=== PATIENT | male | born 1935 | race Caucasian/White ===

== ENCOUNTER 2023-05-19 19:31 | Emergency (ER) | payer MEDICARE, SELFPAY ==
--- NOTE | ~2023-05-19 | XR_ITS ---
EXAMINATION: XR chest 2V 05/19/2023 19:54 INDICATION: Shortness of breath and cough PROCEDURE: 2 view chest COMPARISON: No prior studies for comparison. FINDINGS: The lungs are clear. The cardiomediastinal silhouette is within normal limits. There are no pleural effusions. There is no pneumothorax suspected. IMPRESSION: 1: NO ACUTE CARDIOPULMONARY DISEASE. Reviewed, dictated and finalized at location A.
--- NOTE | 2023-05-19 19:34 | ED.SOB ---
HPI - SOB/Dyspnea General Chief Complaint: Upper Respiratory Infection Stated Complaint: Chest Congestion,Cough,Shortness of Breath Time Seen by Provider: 05/19/23 19:34 Source: patient Mode of arrival: ambulatory Limitations: no limitations History of Present Illness HPI Narrative: Edouard is an 88-year-old male patient presenting to the clinic today with complaints of chest congestion, cough, and shortness of breath x4 days. He reports he reports he did have fever today 100.4 and was given Tylenol at 7:00 this evening. History of hyperlipidemia, high blood pressure, Parkinson's, and prediabetes Related Data Allergies Allergy/AdvReac Type Severity Reaction Status Date / Time Penicillins Allergy Unknown Verified 05/19/23 19:53 Review of Systems Review of Systems: Pertinent positives per HPI. Patient denies any rash, headache, visual changes, dizziness, chest pain, palpitations, nausea, vomiting, diarrhea, constipation, abdominal pain, or any urinary issues. PMFSH Comments At the time of my signature, I reviewed and agree with the nursing past medical, surgical, social, and family history. There is no relevant family history pertinent to the patient complaint. Exam Narrative: General: Well-developed, well nourished, in no apparent distress Head: Normocephalic, atraumatic Eyes: Pupils equally round and reactive to light bilaterally, EOM intact, sclera and conjunctive clear, no discharge, lids normal Ears: TMs intact and congested, ear canals clear, no drainage, grossly hearing normal. Wears hearing aids Nose: Nares patent, clear nasal discharge, no inflammation, no sinus tenderness. Mouth: Oral pharynx without lesions or masses, good dentition, MMM. Neck: Supple, trachea midline, no enlargement of anterior or posterior cervical nodes, no thyroid masses or goiter palpable. Cardio: Regular rate and rhythm, s1 and s2 normal, no murmur appreciated. Resp: Lung sounds tight with inspiratory and expiratory wheezing, no rhonchi, rales, or rubs Course Course Emergency Course: Portions of this record may have been created with voice recognition software. Level of Care: Express Care Visit Vital Signs Vital signs: Vital signs reviewed MDM - SOB/Dyspnea MDM Narrative Medical decision making narrative: At the time of visit patient is resting comfortably on the exam table. Patient appears to be nontoxic. Diagnostics: Chest x-ray was performed and is negative for any sign of pneumonia Medications given: Nakia LAM treatment -lung sounds improved-patient is moving more air and SpO2 is 94% at the time of discharge Plan: I suspect patient has bronchitis. Patient is bringing up yellow phlegm and is increase in age-no formal history of COPD but does take Spiriva and albuterol inhaler when needed. I feel that is appropriate to give patient antibiotics. Will send in prescription for azithromycin, prednisone, Tessalon Perles, and new albuterol inhaler prescription. Supportive measures were discussed with the patient and they voiced understanding discharge instructions and agrees to treatment plan. Return precautions reviewed Differential Diagnosis Differential diagnosis: Likely acute exacerbation of chronic obstructive airways disease, congestive heart failure, community acquired pneumonia, asthma with exacerbation, pulmonary embolism and other (COVID, influenza) Discharge Plan Discharge Clinical Impression: Bronchitis Patient Disposition: Home, Self-Care Condition: Stable Instructions: Antibiotic Form, Acute Bronchitis (ED) Additional Instructions: COVID and influenza testing was negative Take prescription medications only as prescribed-prednisone, azithromycin, albuterol inhaler, and Tessalon Perles May take Mucinex during the daytime intake Tessalon Perles at night to help him sleep Increase fluids and stay well hydrated Tylenol/motrin for pain/fever Flonase and OTC antihistamines as directed
[2023-05-19 19:42] VITALS: BP 150/65; PULSE 90; RESP 18; TEMP 37.1; O2SAT 96
[2023-05-19] MEDS: IPRATROPIUM BR 0.02% INH SOLN 0.5 MG/2.5 ML VIAL INHALATION (20:01)
[2023-05-19] MEDS: ALBUTEROL SULFATE NEB 2.5 MG/3 ML INH INHALATION (20:01)
== END 2023-05-19 20:17 | disposition home or self-care (01) ==
PROVIDERS: Emergency Provider Nurse Practitioner Family; PCP Pediatrics
DX: J40 Bronchitis, not specified as acute or chronic (principal); Z20.822 Contact with and (suspected) exposure to COVID-19; G20.A1 Parkinson's disease without dyskinesia, without mention of fluctuations; E78.00 Pure hypercholesterolemia, unspecified; I10 Essential (primary) hypertension; J44.9 Chronic obstructive pulmonary disease, unspecified
CPT/HCPCS: 71046; 87426; 87804; 94640; 99213; G0463

== ENCOUNTER 2024-03-19 14:05 | Emergency (ER) | payer MEDICARE, SELFPAY ==
[2024-03-19 14:37] VITALS: BP 159/78; PULSE 80; RESP 18; TEMP 36.7; O2SAT 95
--- OUTSIDE RECORDS SUMMARY | 2024-03-19 14:41 | XMS_ITS | Patient Health Record ---
Author Organization [facility] Address [address] [place], [place] [id number] Care Team Providers Care Car Pre Cooler Name Role Phone RALPH DELGADO Unavailable [phone] Fuentes Colindres Unavailable Unavailable Allergies No Known Allergies Reason For Referral No Information Immunizations Vaccine Route Administration Date Status Comme nts Influenza, high dose seasonal Unknown 11/19/2022 Admini stered Vital Signs Height-cm 185.42 cm 10/04/2023 Weight-kg 81.65 kg 10/04/2023 Height 73.00 in 10/04/2023 Weight 180 lbs 10/04/2023 BMI 23.75 kg/m2 10/04/2023 Encounters Encounter Location Date Provider Diagnosis [facility] [address] [place], [place] [id number] 03/22/2023 RALPH SNOOK Tinea unguium B35.1 ; Pain in right toe(s) M79.674 ; Pain in left toe(s) M79.675 and 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, bilateral legs I70.213 [facility] [address] [place], [place] [id number] 06/14/2023 RALPH SNOOK Tinea unguium B35.1 ; Pain in right toe(s) M79.674 ; Pain in left toe(s) M79.675 and 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, bilateral legs I70.213 [facility] [address] [place], [place] [id number] 10/04/2023 RALPH SNOOK Tinea unguium B35.1 ; Pain in right toe(s) M79.674 ; Pain in left toe(s) M79.675 and 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, bilateral legs I70.213 [facility] [address] [place] [address] [address] [place], [place] [id number] 12/14/2023 RALPH DELGADO Tinea unguium B35.1 ; Pain in right toe(s) M79.674 ; Pain in left toe(s) M79.675 and 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 NAIL DEBRIDEMENT: Nails 1-5 Bilateral were debrided extensively with nail nippers and emery board, reducing length and girth to pink healthy tissue with any subungual debris and necrotic tissue removed 03/22/2023 Pain in right toe(s) (ICD-10 - M79.674) 06/14/2023 Tinea unguium (ICD-10 - B35.1) FUNGAL TOENAILS: Discussed various treatment options for fungal toenails including debridement, topical antifungals, oral antifungals, toenail avulsion, or toenail matrixectomy. NAIL DEBRIDEMENT: Nails 1-5 Bilateral were debrided extensively with nail nippers and emery board, reducing length and girth to pink healthy tissue with any subungual debris and necrotic tissue removed 06/14/2023 Pain in right toe(s) (ICD-10 - M79.674) 10/04/2023 Tinea unguium (ICD-10 - B35.1) FUNGAL TOENAILS: Discussed various treatment options for fungal toenails including debridement, topical antifungals, oral antifungals, toenail avulsion, or toenail matrixectomy. NAIL DEBRIDEMENT: Nails 1-5 Bilateral were debrided extensively with nail nippers and emery board, reducing length and girth to pink healthy tissue with any subungual debris and necrotic tissue removed 10/04/2023 Pain in right toe(s) (ICD-10 - M79.674) 12/14/2023 Tinea unguium (ICD-10 - B35.1) FUNGAL TOENAILS: Discussed various treatment options for fungal toenails including debridement, topical antifungals, oral antifungals, toenail avulsion, or toenail matrixectomy. 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, bilateral legs (ICD-10 - I70.213) 10/04/2023 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, bilateral legs (ICD-10 - I70.213) 12/14/2023 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, bilateral legs (ICD-10 - I70.213) Plan Of Treatment Next Appt Details Provider Name:RALPH DELGADO, 11:10:00 AM, [address], [address], [place], [place], [id number], Insurance Providers Payer Name Payer Address Payer Phone Subscriber Number Group Number Insured Name Patient Relationship to Insured Coverage Start Date Coverage End Date Medicare Part B [place] [address] [place] [phone] [id number] MELISSA BROWN Self - patient is the insured [facility] [address] [address] [place] [phone] [id number] MELISSA BROWN Self - patient is the insured
--- OUTSIDE RECORDS SUMMARY | 2024-03-19 14:41 | XMS_ITS ---
Author Organization [facility] Address [address] [facility] [address] [place], [place] [phone] Care Team Providers Care Pharmacy Grad Intern Name Role Phone DANNY RALPH Unavailable [phone] Fuentes Colindres Unavailable Unavailable REASON FOR VISIT Patient presents for at-risk foot care . The patient has painful toenails that cause difficulty with ambulation and shoegear. 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, bilateral legs I70.213 Assessments Encounter Date Diagnosis (ICD Code) Assessment Notes Treatment Notes Treatment Clinical Notes Section Notes 06/14/2023 Tinea unguium (ICD-10 - B35.1) FUNGAL [...] in right toe(s) (ICD-10 - M79.674) 06/14/2023 Pain in left toe(s) (ICD-10 - M79.675) 06/14/2023 Atherosclerosis of white mountain arteries of extremities with intermittent claudication, bilateral legs (ICD-10 - I70.213) Plan Of Treatment Treatment Notes Assessment Notes Tinea unguium FUNGAL TOENAILS: Discussed various treatment options for fungal toenails including debridement, topical antifungals, oral antifungals, toenail avulsion, or toenail matrixectomy. NAIL DEBRIDEMENT: Nails 1-5 Bilateral were debrided extensively with nail nippers and emery board, reducing length and girth to pink healthy tissue with any subungual debris and necrotic tissue removed Next Appt Details Follow Up: 10-12 Weeks, Reas on: At Risk Foot care, sooner if problems arise Provider Name:RALPH DELGADO, 11:10:00 AM, [address] [place] [address], [phone], Progress Notes * MELISSA BROWNDOB:1935 (88 yo M)Acc No.[id number]:06/14/2023 Patient: MELISSA LARES Provider: Johnie Delgado DPM :1935 A ge:88 Y S ex:Male Date:06/14/2023 Address:[address] [place] [address] Subjective: * Chief Complaints: * 1 . Patient presents for at-risk foot care . The patient has painful toenails that cause difficulty with ambulation and shoegear. The onset is gradual. * HPI: H PI: General care P atient presents to the office for at risk foot care. Patient states that their nails are thickened, elongated and painful. Patient states that it is aggravated by shoe gear. Onset is gradual. Patient denies being diabetic., Patient denies taking prescription blood thinners but does take a daily aspirin., Date last seen by Dr. Colindres was May., Initials As. * Medical History: Objective: * Vitals: W t: 180 lbs, Wt-k.65 kg, Ht: 73.00 in, Ht-cm: 185.42 cm, BMI: 23.75 Index, Body Surface Area: 2.05. * Examination: C onstitutional: Constitutional T he patient is awake, alert, well developed, well groomed and well nourished.. D ermatologic: Skin findings: S kin is thin, atrophic and lacking pedal hair.. Nail pathology: N ails 1-5 bilateral are elongated, thick, discolored, and dystrophic with subungual debris. They are painful to palpation. ? V ascular: Dorsalis pedis pulse: 0 /4, bilateral. Posterior tibial pulse: 1 /4, bilaterally. Capillary refill: g reater than 3 seconds. Edema: N o edema, bilateral. N eurologic: Gross sensation G ross sensation is intact to light touch..? M usculoskeletal: Muscle Strength M uscle strength is 5/5 in regards to dorsiflexion, plantarflexion, inversion, and eversion in bilateral lower extremities.. ? Assessment: * Assessment: 1. T inea unguium - B35.1 (Primary) 2 . P ain in right toe(s) - M79.674 3 . P ain in left toe(s) - M79.675 4 . A therosclerosis of white mountain arteries of extremities with intermittent claudication, bilateral legs - I70.213 Plan: * Treatment: * Procedure Codes: 1 1721 DEBRIDE NAIL, 6 OR MORE, Modifiers: Q8 * Follow Up: 1 0-12 Weeks (Reason: At Risk Foot care, sooner if problems arise) * Billing Information: * Visit Code: * Procedure Codes: 55258 DEBRIDE NAIL, 6 OR MORE. Modifiers: Q8 * Sign off status: Completed true * Provider: Johnie Delgado DPM Date: 0 06/14/2023 Generated for Mychal horowitz/Jose/Sarah on: 0 03/19/2024 02:41 PM CLIENT SERVER DEVELOPER History and Physical Notes * HPI (History of Present Illness) Category Sub-Category Detail Notes Category Not es HPI General care Patient presents to the office for at risk foot care. Patient states that their nails are thickened, elongated and painful. Patient states that it is aggravated by shoe gear. Onset is gradual. Patient denies being diabetic., Patient denies taking prescription blood thinners but does take a daily aspirin., Date last seen by Dr. Colindres was May., Initials As Examination Category Sub-Category Detail Notes Category Not es Dermatologic Skin findings: Skin is thin, at rophic and lacking pedal hair. Nail pathology: Nails 1-5 bilateral are elongated, thick, discolored, and dystrophic with subungual debris. They are painful to palpation Neurologic Gross sensation Gross sensation is intact to light touch. Vascular Dorsalis pedis pulse: 0/4, bilateral Edema: No edema, bilateral Capillary refill: greater than 3 secon ds Posterior tibial pulse: 1/4, bilaterally Musculoskeletal Muscle Strength Muscle strength is 5/5 in regards to dorsiflexion, plantarflexion, inversion, and eversion in bilateral lower extremities. Constitutional Constitutional The patient is a wake, alert, well developed, well groomed and well nourished.
--- OUTSIDE RECORDS SUMMARY | 2024-03-19 14:41 | XMS_ITS ---
Author Organization [facility] Address [address] [facility] [address] [place], [place] [id number] Care Team Providers Care Hydraulic Rockbreaker Operator Name Role Phone DANNY RALPH Unavailable [phone] Fuentes Colindres Unavailable Unavailable REASON FOR VISIT Patient presents for at-risk foot care . The patient has painful toenails that cause difficulty with ambulation and shoegear. The onset is gradual Vital Signs Height 73.00 in 10/04/2023 Weight 180 lbs 10/04/2023 BMI 23.75 kg/m2 10/04/2023 Height-cm 185.42 cm 10/04/2023 Weight-kg 81.65 kg 10/04/2023 Encounters Encounter Location Date Provider Diagnosis [facility] [address] [facility] [address] [place], [place] [id number] 10/04/2023 RALPH DELGADO Tinea unguium B35.1 ; Pain in right toe(s) M79.674 ; Pain in left toe(s) M79.675 and Atherosclerosis of white earth arteries of extremities with intermittent claudication, bilateral legs I70.213 Assessments Encounter Date Diagnosis (ICD Code) Assessment Notes Treatment Notes Treatment Clinical Notes Section Notes 10/04/2023 Tinea unguium (ICD-10 - B35.1) FUNGAL [...] in right toe(s) (ICD-10 - M79.674) 10/04/2023 Pain in left toe(s) (ICD-10 - M79.675) 10/04/2023 Atherosclerosis of white earth arteries of extremities with intermittent claudication, bilateral [...] problems arise Provider Name:RALPH DELGADO, 11:10:00 AM, [address] [place] [address], [id number], Progress Notes * MELISSA BROWNDOB:1935 (88 yo M)Acc No.[id number]:10/04/2023 Patient: MELISSA LARES Provider: Johnie Delgado DPM :1935 A ge:88 Y S ex:Male Date:10/04/2023 Address:[address] [place] [address] Subjective: * Chief Complaints: * 1 . [...] Date last seen by Dr. Colindres was June 2023., Initials JRYelitza sample. * Medical History: * Social History: M igrated Social History: M igrated Social History: Smoking Status : Never used tobacco , History of tobacco use :. Objective: * Vitals: W t: 180 lbs, Wt-k.65 kg, Ht: 73.00 in, Ht-cm: 185.42 cm, BMI: 23.75 Index, Body Surface Area: 2.05. * Examination: C onstitutional: Constitutional T he patient is awake, alert, well developed, well groomed and well nourished. D ermatologic: Skin findings: S kin is thin, atrophic and lacking pedal hair. Nail pathology: N ails 1, 2, 3, 4, and 5 bilateral are elongated, thick, discolored, and dystrophic with subungual debris. They are painful to palpation. ? V ascular: Dorsalis pedis pulse: 1 /4 b ilateral. Posterior tibial pulse: 0 /4 b ilateral. Capillary refill: g reater than 3 seconds. Edema: N o edema, bilateral. N eurologic: Gross sensation G ross sensation is intact to light touch.? M usculoskeletal: Muscle Strength M uscle strength is 5/5 in regards to dorsiflexion, plantarflexion, inversion, and eversion in bilateral lower extremities. ? Assessment: * Assessment: 1. T inea unguium - B35.1 (Primary) 2 . P ain in right toe(s) - M79.674 3 . P ain in left toe(s) - M79.675 4 . A therosclerosis of white earth arteries of extremities with intermittent claudication, bilateral legs - I70.213 Plan: * Treatment: * Procedure Codes: 1 1721 DEBRIDE NAIL, 6 OR MORE, Modifiers: Q8 * Follow Up: 1 0-12 Weeks (Reason: At Risk Foot care, sooner if problems arise) * Billing Information: * Visit Code: * Procedure Codes: 99744 DEBRIDE NAIL, 6 OR MORE. Modifiers: Q8 * Sign off status: Completed true * Provider: Johnie Delgado DPM Date: 0 10/04/2023 Generated for Mychal horowitz/Jose/Sarah on: 0 03/19/2024 02:40 PM PURSE SEINER History and Physical Notes * HPI (History [...] Date last seen by Dr. Colindres was June 2023., Initials JR sample Examination Category Sub-Category Detail Notes Category Not es Dermatologic Skin findings: Skin is thin, at rophic and lacking pedal hair Nail pathology: Nails 1, 2, 3, 4, an d 5 bilateral are elongated, thick, discolored, and dystrophic with subungual debris. They are painful to palpation Neurologic Gross sensation Gross sensation is intact to light touch Vascular Dorsalis pedis pulse: 1/4 bilateral Edema: No edema, bilateral Capillary refill: greater than 3 secon ds Posterior tibial pulse: 0/4 bilateral Musculoskeletal Muscle Strength Muscle strength is 5/5 in regards to dorsiflexion, plantarflexion, inversion, and eversion in bilateral lower extremities Constitutional Constitutional The patient is a wake, alert, well developed, well groomed and well nourished
--- OUTSIDE RECORDS SUMMARY | 2024-03-19 14:41 | XMS_ITS ---
Author Organization [facility] Address [address] [place], [place] [id number] Care Team Providers Care Printer Slotter Helper Name Role Phone RALPH DELGADO Unavailable [phone] Fuentes Colindres Unavailable Unavailable REASON FOR VISIT Patient presents for at-risk foot care . The patient has painful toenails that cause difficulty with ambulation and shoegear. 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, bilateral legs I70.213 Assessments Encounter Date Diagnosis (ICD Code) Assessment Notes Treatment Notes Treatment Clinical Notes Section Notes 12/14/2023 Tinea unguium (ICD-10 - B35.1) FUNGAL [...] Pain in left toe(s) (ICD-10 - M79.675) 12/14/2023 Atherosclerosis of platinum arteries of extremities with intermittent claudication, bilateral [...] problems arise Provider Name:RALPH DELGADO, 11:10:00 AM, [address] [facility], [address], [phone], Progress Notes * MELISSA BROWNDOB:1935 (88 yo M)Acc No.[id number]:12/14/2023 Patient: MELISSA LARES Provider: Johnie Delgado DPM :1935 A ge:88 Y S ex:Male Date:12/14/2023 Address:[address] [place] [address] Subjective: * Chief Complaints: * Avtar campbell presents for at-risk foot care . The patient has painful toenails that cause difficulty with ambulation and shoegear. The onset is gradual * HPI: H PI: General care Avtar campbell presents to the office for at risk foot care. Patient states that their nails are thickened, elongated and painful. Patient states that it is aggravated by shoe gear. Onset is gradual. Patient denies being diabetic., Patient denies taking prescription blood thinners but does take a daily aspirin., Date last seen by Dr. Colindres was 11/2023., Initials beg. sample. * Medical History: * Surgical History: * Hospitalization/Major Diagno stic Procedure: * Medications: Objective: * Vitals: * Examination: C onstitutional: Constitutional T he [...] . P ain in right toe(s) - M79.674? 3. P ain in left toe(s) - M79.675 4 . 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 Modifiers: Q8 * WARE TEST MANAGER Sign off status: Completed true * Provider: Johnie Delgado DPM Date: 1 02/12/2023 Generated for Mychal horowitz/Jose/Mickeyitting on: 0 03/19/2024 02:40 PM SOFTWARE TEST MANAGER History and Physical Notes * HPI (History [...] Date last seen by Dr. Colindres was 11/2023., Initials beg sample Examination Category Sub-Category Detail Notes Category [...]
--- OUTSIDE RECORDS SUMMARY | 2024-03-19 14:45 | XMS_ITS | Encounter Summary ---
Author Organization [facility] Address [address] [place] [address] Care Team Providers Care Paper Cup Handle Machine Operator Name Role Phone Fuentes Colindres MD Primary Care Provide r Encounter Details Date Type Department Care Team (Late st Contact Info) Description 05/19/2023 TapnScraphart Message Enc [facility] [address] [place] [address] [place] [address] [place] [address] Edouard Chua appointment Social History Tobacco Use Types Packs/Day Years Used Date Smoking Tobacco: Never Smokeless Tobacco: Never Alcohol Use Standard Drinks/Week Comments Not Currently 0 (1 standard drink = 0.6 oz pur e alcohol) very little PHQ-2 Answer Date Recorded Patient Health Questionnaire-2 Score 0 05/09/2023 Sex and Gender Information Value Date Recorded Sex Assigned at Not on file Legal Sex Male 9:36 PM CDT Gender Identity Not on file Sexual Orientation Not on file documented as of this encounter Plan of Treatment Upcoming Encounters Date Type Department Care Team (Late st Contact Info) Description 05/08/2024 10:40 AM CDT Office Visit [facility] [address] [place] [address] [place] [address] [place] [address] documented as of this encounter Visit Diagnoses Not on filedocumented in this encounter Additional Health Concerns Assessment Noted Time PHQ-9 Depression Total Score: 0 04/22/19 22 10:39 AM CDT documented as of this encounter Care Teams Paper Cup Handle Machine Operator Relationship Specialty Start [place] [address] [place] [address] PCP - General 07/08/14 documented as of this encounter
--- OUTSIDE RECORDS SUMMARY | 2024-03-19 14:45 | XMS_ITS | Encounter Summary ---
Author Organization [facility] Address [address] [place] [address] Care Team Providers Care Activities Counselor Name Role Phone Fuentes Colindres MD Primary Care Provide r Encounter Details Date Type Department Care Team (Late st Contact Info) Description 03/26/2016 Abstract [facility] [address] [place] [address] , Generic MD John Social History Tobacco Use Types Packs/Day Years Used Date Smoking Tobacco: Never Sex and Gender Information Value Date Recorded Sex Assigned at Not on file Legal Sex Male 9:36 PM CDT Gender Identity Not on file Sexual Orientation Not on file documented as of this encounter Plan of Treatment Upcoming Encounters Date Type Department Care Team (Late st Contact Info) Description 05/08/2024 10:40 AM CDT Office Visit [facility] [address] [place] [address] [place] [address] [place], [place] [id number] documented as of this encounter Visit Diagnoses Not on filedocumented in this encounter Additional Health Concerns Infection Onset Date Last Indicated Resolved Time COVID-19 Rule Out 01/26/2022 01/26/2022 01/26/2022 11:23 AM COMMODITY MANAGEMENT SPECIALIST COVID-19 Rule Out 12/06/2022 12/06/2022 12/06/2022 3:52 PM CDT documented as of this encounter Care Teams Activities Counselor Relationship Specialty [place] [address] [place] [address] PCP - General 07/08/14 documented as of this encounter
--- OUTSIDE RECORDS SUMMARY | 2024-03-19 14:45 | XMS_ITS | Encounter Summary ---
Author Organization [facility] Address [address] [place] [address] Care Team Providers Care Skidder Operator Name Role Phone Fuentes Colindres MD Primary Care Provide r Encounter Details Date Type Department Care Team (Late st Contact Info) Description 12/23/2022 [email or web address] Message Enc [facility] [address] [place] [address] [place] [address] [place] [address] Nash Harshil calixto Social History Tobacco Use Types Packs/Day Years Used Date Smoking Tobacco: Never Smokeless Tobacco: Never Alcohol Use Standard Drinks/Week Comments Not Currently 0 (1 standard drink = 0.6 oz pur e alcohol) very little PHQ-2 Answer Date Recorded Patient Health Questionnaire-2 Score 0 11/04/2022 Sex and Gender Information Value Date Recorded Sex Assigned at Not on file Legal Sex Male 9:36 PM CDT Gender Identity Not on file Sexual Orientation Not on file documented as of this encounter Plan of Treatment Upcoming Encounters Date Type Department Care Team (Late Contact Info) Description 05/08/2024 10:40 AM CDT Office Visit [facility] [address] [place] [address] [place] [address] [place] [address] documented as of this encounter Visit Diagnoses Not on filedocumented in this encounter Additional Health Concerns Assessment Noted Time PHQ-9 Depression Total Score: 0 04/22/19 22 10:39 AM CDT documented as of this encounter Care Teams Skidder Operator Relationship Specialty Start [place] [address] [place] [address] PCP - General 07/08/14 documented as of this encounter
--- OUTSIDE RECORDS SUMMARY | 2024-03-19 14:45 | XMS_ITS | Encounter Summary ---
Author Organization [facility] Address [address] [place] [address] Care Team Providers Care Structural Steel Erection Supervisor Name Role Phone Fuentes Colindres MD Primary Care Provide r Encounter Details Date Type Department Care Team (Late st Contact Info) Description 04/12/2022 GreenerUt Message [facility] [address] [place] [address] [place] [address] [place] [address] Nash Harshil- medication request Social History Tobacco Use Types Packs/Day Years Used Date Smoking Tobacco: Never Smokeless Tobacco: Never Alcohol Use Standard Drinks/Week Comments Not Currently 0 (1 standard drink = 0.6 oz pur e alcohol) very little PHQ-2 Answer Date Recorded Patient Health Questionnaire-2 Score 0 04/13/2022 Sex and Gender Information Value Date Recorded Sex Assigned at Not on file Legal Sex Male 9:36 PM CDT Gender Identity Not on file Sexual Orientation Not on file COVID-19 Exposure Response Date Recorded In the last 10 days, have yo u been in contact with someone who was confirmed or suspected to have Coronavirus/COVID-19? No / Unsure 04/13/2022 1:12 PM BANANA RIPENING ROOM SUPERVISOR documented as of this encounter Plan of Treatment Upcoming Encounters Date Type Department Care Team (Late st Contact Info) Description 05/08/2024 10:40 AM CDT Office Visit [facility] [address] [place] [address] [place] [address] [place] [address] documented as of this encounter Visit Diagnoses Not on filedocumented in this encounter Additional Health Concerns Infection Onset Date Last Indicated Resolved Time COVID-19 Rule Out 12/06/2022 12/06/2022 12/06/2022 3:52 PM CDT Assessment Noted Time PHQ-9 Depression Total Score: 0 04/22/19 10:39 AM CDT documented as of this encounter Care Teams Structural Steel Erection Supervisor Relationship Specialty Start [place] [address] [place] [address] PCP - General 07/08/14 documented as of this encounter
--- OUTSIDE RECORDS SUMMARY | 2024-03-19 14:45 | XMS_ITS | Encounter Summary ---
Author Organization [facility] Address [address] [place] [address] Care Team Providers Care Retort Load Expediter Name Role Phone Fuentes Colindres MD Primary Care Provide r Encounter Details Date Type Department Care Team (Late st Contact Info) Description 07/15/2011 Abstract [facility] Clin[facility] Conversion Md, Generic Conversion, Social History Tobacco Use Types Packs/Day Years Used Date Smoking Tobacco: Never Assessed Sex and Gender Information Value Date Recorded Sex Assigned at Not on file Legal Sex Male 9:36 PM CDT Gender Identity Not on file Sexual Orientation Not on file documented as of this encounter Plan of Treatment Upcoming Encounters Date Type Department Care Team (Late st Contact Info) Description 05/08/2024 10:40 AM CDT Office Visit [facility] [address] [address] [place] [address] [place], [place] [id number] documented as of this encounter Visit Diagnoses Not on filedocumented in this encounter Additional Health Concerns Infection Onset Date Last Indicated Resolved Time COVID-19 Rule Out 01/26/2022 01/26/2022 01/26/2022 11:23 AM ECOLOGY PROFESSOR COVID-19 Rule Out 12/06/2022 12/06/2022 12/06/2022 3:52 PM CDT documented as of this encounter Care Teams Retort Load Expediter Relationship Specialty [place] [address] [place] [address] PCP - General 07/08/14 documented as of this encounter
--- OUTSIDE RECORDS SUMMARY | 2024-03-19 14:45 | XMS_ITS | Encounter Summary ---
Author Organization [facility] Address [address] [place] [address] Care Team Providers Care Kiln Cleaner Name Role Phone Fuentes Colindres MD Primary Care Provide r Encounter Details Date Type Department Care Team (Late st Contact Info) Description 02/21/2012 Abstract [facility] Conversion Md, Generic Conversion, Social History [...] CDT Office Visit [facility] [address] [address] [place] [address] [place], [place] [id number] documented as of this encounter Visit Diagnoses Not on filedocumented in this encounter Additional Health Concerns Infection Onset Date Last Indicated Resolved Time COVID-19 Rule Out 01/26/2022 01/26/2022 01/26/2022 11:23 AM LABEL STAMPER COVID-19 Rule Out 12/06/2022 12/06/2022 12/06/2022 3:52 PM CDT documented as of this encounter Care Teams Kiln Cleaner Relationship Specialty [place] [address] [place] [address] PCP - General 07/08/14 documented as of this encounter
--- OUTSIDE RECORDS SUMMARY | 2024-03-19 14:45 | XMS_ITS | Encounter Summary ---
Author Organization [facility] Address [address] [place] [address] Care Team Providers Care Speech Professor Name Role Phone Fuentes Colindres MD Primary Care Provide r Encounter Details Date Type Department Care Team (Late st Contact Info) Description 05/19/[address] My[address] [facility] [address] [place] [address] Darlin Posada, ARTIFICIAL BREEDING DISTRIBUTOR [address] [place] [address] Edouard Chua appointment Social History Tobacco Use [...] [facility] [address] [place] [address] [place] [address] [place] [address] documented as of this encounter Visit Diagnoses Not on filedocumented in this encounter Additional Health Concerns Assessment Noted Time PHQ-9 Depression Total Score: 0 04/22/19 22 10:39 AM CDT documented as of this encounter Care Teams Speech Professor Relationship Specialty [place] [address] [place] [address] PCP - General 07/08/14 documented as of this encounter
--- OUTSIDE RECORDS SUMMARY | 2024-03-19 14:45 | XMS_ITS | Encounter Summary ---
Author Organization [facility] Address [address] [place] [address] Care Team Providers Care Physical Therapy Manager Name Role Phone Fuentes Colindres MD Primary Care Provide r Encounter Details Date Type Department Care Team (Late st Contact Info) Description 03/14/2023 [employer] Message [facility] [address] [place] [address] [place] [address] [place] [address] Nash Chua Carbidopa medication Social History Tobacco Use Types Packs/Day Years [...] on file documented as of this encounter Progress Notes * Fuentes Colindres MD - 03/14/2023 12:22 PM CST Increased to 25/250 TID. Call in 4 weeks with update. GE KNOTTER documented in this encounter Plan of Treatment Upcoming Encounters Date Type Department Care Team (Late st Contact Info) Description 05/08/2024 10:40 AM CDT Office Visit [facility] [address] [place] [address] [place] [address] [place], [place] [id number] documented as of this encounter Visit Diagnoses Not on filedocumented in this encounter Additional Health Concerns Assessment Noted Time PHQ-9 Depression Total Score: 0 04/22/19 10:39 AM CDT documented as of this encounter Care Teams Physical Therapy Manager Relationship Specialty Start [place] [address] [place] [address] PCP - General 07/08/14 documented as of this encounter
--- OUTSIDE RECORDS SUMMARY | 2024-03-19 14:45 | XMS_ITS | Clinical Summary ---
Author Organization [facility] Address [address] [place] [address] Care Team Providers Care Forest Fire Prevention Manager Name Role Phone Fuentes Colindres MD Primary Care Provide r Allergies Active Allergy Reactions Criticality Noted Date Comments Penicillins Rash,Unknown Low 09/01/2006 Medications latanoprost 0.005 % ophthalmic solution INSTILL 1 DROP INTO BOTH EYES HS. 3 05/05/19 19 Active ASPIRIN 81 OR Take 1 tablet by mouth daily. 09/04/19 16 Active FLUAD QUADRIVALENT 0.5 ML Prefilled Syringe Inject 0.5 mLs into the muscle. 11/08/19 20 Active albuterol sulfate HFA 108 (90 Base) MCG/ACT inhalerIndication s:Wheeze Inhale 2 puffs into the lungs every 4 (four) hours as needed for Wheezing. 18 g 11 01/27/20 22 Active Spacer/Aero-Holdi ng Chambers (BREATHERITE JAYME SPACER ADULT) MiscIndications:W heeze Use with inhaler. 1 each 01/27/20 22 Active Ergocalciferol (VITAMIN D OR) Take 1 tablet by mouth daily. OTC Active Misc. Devices (QUAD CANE) MiscIndications:P arkinson's disease (CMS/HCC [facility]/HCC) Use as needed for ambulation. 1 each 1 08/24/19 23 Active mirabegron ER (MYRBETRIQ) 50 MG 24 hr tabletIndications :Urinary frequency Take 1 tablet daily. 30 tablet 11 02/17/19 24 Active finasteride (PROSCAR) 5 MG tabletIndications :Benign prostatic hyperplasia with urinary frequency TAKE 1 TABLET BY MOUTH ONCE DAILY 90 tablet 08/22/19 24 Active tamsulosin (FLOMAX) 0.4 MG CapIndications:Be nign prostatic hyperplasia with urinary frequency TAKE 1 CAPSULE BY MOUTH ONCE DAILY 90 capsule 08/22/19 24 Active pantoprazole EC (PROTONIX) 40 MG tabletIndications :Gastroesophageal reflux disease without esophagitis TAKE 1 TABLET BY MOUTH ONCE DAILY 90 tablet 08/22/19 24 Active metFORMIN ER (GLUCOPHAGE-XR) 500 MG 24 hr tabletIndications :Type 2 diabetes mellitus without complication, without long-term current use of insulin ([facility]) TAKE 1 TABLET BY MOUTH ONCE DAILY 90 tablet 08/22/19 24 Active atorvastatin (LIPITOR) 40 MG tabletIndications :Mixed hyperlipidemia TAKE 1 TABLET BY MOUTH ONCE DAILY 90 tablet 08/22/19 24 Active budesonide-formot ayesha (SYMBICORT) 160-4.5 MCG/ACT inhalerIndication s:Chronic obstructive asthma with status asthmaticus ([facility]CC) INHALE 2 PUFFS INTO THE LUNGS DAILY 10.2 g 08/31/19 24 Active citalopram (CELEXA) 20 MG tabletIndications :Generalized anxiety disorder TAKE 1 AND 1/2 TABLETS BY MOUTH DAILY 135 tablet 3 02/19/19 25 Active ipratropium-albut ayesha (DUONEB) 0.5-2.5 (3) MG/3ML SolutionIndicatio ns:Parkinson's disease with dyskinesia and fluctuating manifestations ([facility]) USE 3 ML VIA NEBULIZER EVERY 6 HOURS NEEDED FOR SHORTNESS OF BREATH OR WHEEZING 90 mL 03/01/19 25 Active carbidopa-levodop a (SINEMET) 25-250 MG tabletIndications :Parkinson's disease with dyskinesia and fluctuating manifestations ([facility]) TAKE 1 TABLET BY MOUTH THREE TIMES DAILY. 270 tablet 03/05/19 25 Active ALPRAZolam (XANAX) 0.5 MG tabletIndications :Insomnia, unspecified type TAKE 1 TABLET BY MOUTH EVERY NIGHT AT BEDTIME 90 tablet 03/06/19 25 Active carbidopa-levodop a (PARCOPA) 25-250 MG disintegrating tabletIndications :Parkinson's disease with dyskinesia and fluctuating manifestations ([facility]) Take 1 tablet by mouth 3 (three) times daily. 90 tablet 11 03/14/19 24 025 Discontinued citalopram (CELEXA) 20 MG tabletIndications :Generalized anxiety disorder TAKE 1 AND 1/2 TABLETS BY MOUTH DAILY 135 tablet 2 06/08/19 24 025 Discontinued ALPRAZolam (XANAX) 0.5 MG tabletIndications :Insomnia, unspecified type TAKE 1 TABLET BY MOUTH EVERY NIGHT AT BEDTIME 90 tablet 1 06/29/19 24 025 Discontinued carbidopa-levodop a (SINEMET) 25-250 MG tabletIndications :Parkinson's disease with dyskinesia and fluctuating manifestations ([facility]) TAKE 1 TABLET BY MOUTH THREE TIMES DAILY 90 tablet 1 03/01/19 25 025 Discontinued Active Problems Problem Noted Date Diagnosed Date Chronic obstructive asthma with status asthmatic us 11/04/2022 Unsteady gait 09/17/2022 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 ([facility]) 10/22/2021 Stage 3a chronic kidney disease ([facility] ) 10/30/2020 Insomnia, unspecified type 10/30/2020 Vitamin D deficiency 10/30/2020 Parkinson's disease ([facility]) 10/30/2020 Actinic keratosis 06/17/2020 Skin lesion 06/17/2020 Anxiety 12/14/2019 Benign essential hypertension 11/17/2017 Overview (05/10/2018): Benign essential hypertension Mixed hyperlipidemia 03/20/2015 Overview (05/10/2018): Mixed hyperlipidemia Benign prostatic hyperplasia 01/16/2007 Resolved Problems Problem Noted Date Diagnosed Date Resolved Date Nocturia 05/06/2022 11/04/2022 Type 2 diabetes mellitus wit hout complications ([facility]) 03/20/2015 10/30/19 22 Overview (05/10/2018): Type 2 diabetes mellitus without complications Encounters Date Type Department Care Team Description 01/30/2024 1:30 PM LENS FABRICATING MACHINE TENDER Office Visit [facility] system [facility] [address] [place] [address] Tierney Chaudhry, PT Fuentes Colindres MD Gait Disturbance (6/8) 01/30/2024 Travel 01/27/2024 11:30 AM LENS FABRICATING MACHINE TENDER Office Visit Health system [facility] [address] [place] [address] Tierney Chaudhry, PT Fuentes Colindres MD Gait Disturbance (5/8) 01/27/2024 Travel 01/20/2024 12:00 PM LENS FABRICATING MACHINE TENDER Office Visit Health system Physical [facility] [address] [place] [address] Tierney Chaudhry, Fuentes Melchor MD Gait Disturbance (4/8 PN) 01/20/2024 Travel from Last 3 Months Immunizations Name Administration Dates Next Due Fluzone High Dose - >Age 65 (Prefilled Syringe) 11/05/2021,11/11/2020,11/10/2017,2016,11/11/2015,11/03/2014 Influenza (Generic) 12/01/2012 Influenza Adult (Generic) 11/08/2019,02/2019,11/15/2018,2017,11/04/2014,11/16/2013,12/08/2006,1 03/08/2005 MODERNA COVID-19 (ZIPPER SETTER TELLY DOMENICA), MRNA, LNP-S, PF, 50 MCG/ 0.25 ML DOSE 07/10/2021 Pneumococcal (Pneumovax 23) 11/11/2020 Pneumococcal (Prevnar 13) 11/04/2022 Family History Medical History Relation Comments No Known Problems Father Cancer Mother Relation Status Comments Father Mother Social History Tobacco Use Types Packs/Day Years Used Date Smoking Tobacco: Never Smokeless Tobacco: Never Tobacco Cessation:Counseling Given: Not Answered Alcohol Use Standard Drinks/Week Comments Not Currently 0 (1 standard drink = 0.6 oz pur e alcohol) very little PHQ-2 Answer Date Recorded Patient Health Questionnaire-2 Score 0 11/08/2023 Sex and Gender Information Value Date Recorded Sex Assigned at Not on file Legal Sex Male 9:36 PM CDT Gender Identity Not on file Sexual Orientation Not on file Last Filed Vital Signs Vital Sign Reading Time Taken Comments Blood Pressure 116/63 11/08/2023 10:29 AM CDT Pulse 70 11/08/2023 10:29 AM CDT Temperature 36.8 C (98.2 F) 11/08/2023 10:29 AM CDT Respiratory Rate 18 11/08/2023 10:29 AM CDT Oxygen Saturation 96% 11/08/2023 10:29 AM CDT Inhaled Oxygen Concentration - - Weight 82.7 kg (182 lb 6.4 oz) 11/08/2023 10:29 AM CDT Height 185.4 cm (6' 1 ) 11/08/2023 10:29 AM CDT Body Mass Index 24.06 11/08/2023 10:29 AM CDT Plan of Treatment Upcoming Encounters Date Type Department Care Team (Late st Contact Info) Description 05/08/2024 10:40 AM CDT Office Visit [facility] [address] [place] [address] [place] [address] [place] [address] Health Maintenance Due Date Last Done Comments DTaP, Tdap and Td Vaccines (1 - Tdap) 02/26/1954 Zoster Vaccines (1 of 2) 02/26/1986 Annual Medicare Wellness Visit 02/26/2001 RSV Immunization or 60+ Years (1 - 1-dose 75+ series) 02/26/2011 COVID-19 Vaccine ( season) 2023 11/05/2021, 07/10/2021, 10/02/2020, Additional history exists Influenza Adult (#1) 2023 11/05/2021, 11/11/2020, 11/08/2019, Additional history exists PHQ-2 (Physician [place]) 02/08/2024 11/08/2023 Hemoglobin A1C 04/24/2024 10/26/2023, 04/08, 10/27/2022, Additional history exists Lipid Panel 05/01/2024 05/02/2023, 04/07, 04/14/2020, Additional history exists Diabetes: Retinopathy Eye Exam 07/04/2025 07/05/2023, 09/04/2018 Pneumococcal Vaccine: 65+ Years Completed 11/04/2022, 11/11/2020 Meningococcal B Vaccine Aged Out No l onger eligible based on patient's age to complete this topic Meningococcal Vaccine Aged Out No rocío miri eligible based on patient's age to complete this topic RSV Immunizations Under 20 Months Aged Out No longer eligible based on patient's age to complete this topic Procedures Procedure Name Priority Date/Time Associated Diagnosis Comments HEMOGLOBIN, GLYCOSYLATED Routine 10/26/2023 1:26 PM CDT 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 disease, without long-term current use of insulin ([facility]) DIABETIC RETINOPATHY EXAM (NEGATIVE)(SCAN ORDER) Routine 07/05/2023 LIPID PANEL Routine 05/02/2023 11:45 AM CDT Mixed hyperlipidemia from Last 3 Months or Most Recently Relevant to Health Maintenance Results * (ABNORMAL) HEMOGLOBIN, GLYCOSYLATED (10/26/2023 1:26 PM CDT) HGB A1C 6.6(H) <5.7 % 10/26/2023 6:39 PM CDT [facility] Comment: ADA GUIDELINES 2010 5.7 TO 6.4% INCREASED RISK OF DIABETES > OR = 6.5% CONSISTENT WITH DIABETES [place] [address] ESTIMATED AVG GLUCOSE 143 mg/dL 10/26/2023 6:39 PM CDT [facility] 10/26/2023 1:26 PM CDT us Fuentes Colindres MD LABORATORY Final Result [facility] [address] [place] [address], [place] [phone] * DIABETIC RETINOPATHY EXAM (NEGATIVE) (07/05/2023) us [facility] Scanned SCANNING Final Resu lt [facility] * LIPID PANEL (05/02/2023 11:45 AM CDT) CHOLESTEROL 154 <200 MG/DL 05/02/2023 5:24 PM CDT [facility] TRIGLYCERIDES 78 <150 MG/DL 05/02/2023 5:24 PM CDT [facility] HDL 79 >40.0 MG/DL 05/02/2023 5:24 PM CDT [facility] LDL (CALCULATED) 59 <100 MG/DL 05/02/19 5:24 PM CDT [facility] NON HDL CHOLESTEROL 75 <130 MG/DL 05/01 5:24 PM CDT [facility] Comment: NOTE: WHEN THE TRIGLYCERIDES ARE >200 mg/dL, NON HDL C IS A SECONDARY TARGET OF THERAPY, WITH A GOAL 30 mg/dL HIGHER THAN THE IDENTIFIED LDL C GOAL. CHOL/HDL RATIO 1.9 0.0 - 4.5 05/02/2023 5:24 PM CDT [facility] VLDL CALCULATION 16 5 - 55 MG/DL 05/02/2023 5:24 PM CDT [facility] LIPID INTERPRETATION 05/02/2023 5:24 PM CDT [facility] Comment: NIH CONCENSUS REPORT RECOMMENDATIONS: ADULT CHILD LOW RISK: CHOLESTEROL <200 <170 TRIGLYCERIDE <150 --- HDL >=60 --- LDL <100 <110 BORDERLINE: CHOLESTEROL 200-239 170-199 TRIGLYCERIDE 150-199 --- HDL 40-59 --- LDL 100-159 110-129 HIGH RISK: CHOLESTEROL >=240 >=200 TRIGLYCERIDE >=200 --- HDL <40 --- LDL >=160 >=130 05/02/2023 11:4 5 AM CDT Fuentes Colindres MD LABORATORY Final Result [facility] [address] [place] [address], [place] [phone] from Last 3 Months or Most Recently Relevant to Health Maintenance Insurance MEDICARE AETNA AETNA Care Teams Forest Fire Prevention Manager Relationship Specialty [place] [address] [place] [address] PCP - General 07/08/14
--- OUTSIDE RECORDS SUMMARY | 2024-03-19 14:45 | XMS_ITS | Encounter Summary ---
Author Organization [facility] Address [address] [place] [address] Care Team Providers Care Collar Padder Blindstitch Name Role Phone Fuentes Colindres MD Primary Care Provide r Encounter Details Date Type Department Care Team (Late Contact Info) Description 05/13/2022 CityPocketshart Message [facility] [address] [place] [address] [place] [address] [place] [address] [employer] Social History Tobacco Use Types Packs/Day Years Used Date Smoking Tobacco: Never Smokeless Tobacco: Never Alcohol Use Standard Drinks/Week Comments Not Currently 0 (1 standard drink = 0.6 oz pur e alcohol) very little PHQ-2 Answer Date Recorded Patient Health Questionnaire-2 Score 0 04/28/2022 Sex and Gender Information Value Date Recorded Sex Assigned at Not on file Legal Sex Male 9:36 PM CDT Gender Identity Not on file Sexual Orientation Not on file COVID-19 Exposure Response Date Recorded In the last 10 days, have yo u been in contact with someone who was confirmed or suspected to have Coronavirus/COVID-19? Yes 04/28/2022 10:26 AM CDT documented as of this encounter Plan of Treatment Upcoming Encounters Date Type Department Care Team (Late Contact Info) Description 05/08/2024 10:40 AM CDT Office Visit [facility] [address] [place] [address] [place] [address] [place], [place] [id number] documented as of this encounter Visit Diagnoses Not on filedocumented in this encounter Additional Health Concerns Infection Onset Date Last Indicated Resolved Time COVID-19 Rule Out 12/06/2022 12/06/2022 12/06/2022 3:52 PM CDT Assessment Noted Time PHQ-9 Depression Total Score: 0 04/22/19 10:39 AM CDT documented as of this encounter Care Teams Collar Padder Blindstitch Relationship Specialty Start [place] [address] [place] [address] PCP - General 07/08/14 documented as of this encounter
--- OUTSIDE RECORDS SUMMARY | 2024-03-19 14:45 | XMS_ITS | Encounter Summary ---
Author Organization [facility] Address [address] [place] [address] Care Team Providers Care Information Technology Administrator Name Role Phone Fuentes Colindres MD Primary Care Provide r Encounter Details Date Type Department Care Team (Late st Contact Info) Description 08/04/2022 MyChart Message Enc [facility] [address] [place], [place] [address] [place], [facility] Provider Air Quality Message Social History Tobacco Use Types Packs/Day Years [...] Description 05/08/2024 10:40 AM CDT Office Visit [facility] [address] [place] [phone] [place] [address] [place] [address] documented as of this encounter Visit Diagnoses Not on filedocumented in this encounter Additional Health Concerns Infection Onset Date Last Indicated Resolved Time COVID-19 Rule Out 12/06/2022 12/06/2022 12/06/2022 3:52 PM CDT Assessment Noted Time PHQ-9 Depression Total Score: 0 04/22/19 10:39 AM CDT documented as of this encounter Care Teams Information Technology Administrator Relationship Specialty Start [place] [address] [place] [address] PCP - General 07/08/14 documented as of this encounter
--- OUTSIDE RECORDS SUMMARY | 2024-03-19 14:45 | XMS_ITS | Encounter Summary ---
Author Organization [facility] Address [address] [place] [address] Care Team Providers Care Travel Counselor Automobile Club Name Role Phone Fuentes Colindres MD Primary Care Provide r Encounter Details Date Type Department Care Team (Late st Contact Info) Description 08/23/2022 CASTT Message [facility] [address] [place] [address] [place] [address] [place] [address] Request for cane for Nash Chua Social History Tobacco Use Types Packs/Day Years [...] Progress Notes * Fuentes Colindres MD - 08/23/2022 3:01 PM CDT Orders entered. Please print and mail. * Fuentes Colindres MD - 08/23/2022 2:13 PM CDT Regular cane or quad cane (better). Send it where? * Fuentes Colindres MD - 08/23/2022 11:36 AM CDT A cane is ok, but would a walker be better? Gives him better stability in more directions. documented in this encounter Plan of Treatment Upcoming Encounters Date Type Department Care Team (Late st Contact Info) Description 05/08/2024 10:40 AM CDT Office Visit [facility] [address] [place] [phone] [place] [address] [place] [address] documented as of this encounter Visit Diagnoses Not on filedocumented in this encounter Additional Health Concerns Infection Onset Date Last Indicated Resolved Time COVID-19 Rule Out 12/06/2022 12/06/2022 12/06/2022 3:52 PM CDT Assessment Noted Time PHQ-9 Depression Total Score: 0 04/22/19 22 10:39 AM CDT documented as of this encounter Care Teams Travel Counselor [employer]obile Club Relationship Specialty Start [place] [address] [place] [address] PCP - General 07/08/14 documented as of this encounter
--- OUTSIDE RECORDS SUMMARY | 2024-03-19 14:45 | XMS_ITS | Encounter Summary ---
Author Organization [facility] Address [address] [place] [address] Care Team Providers Care Delivery Nurse Name Role Phone Fuentes Colindres MD Primary Care Provide r Encounter Details Date Type Department Care Team (Late st Contact Info) Description 03/07/2012 Abstract 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
--- NOTE | 2024-03-19 14:58 | ED.URI ---
HPI - URI/Sore Throat General Chief Complaint: Upper Respiratory Infection Stated Complaint: wheezing and coughing Time Seen by Provider: 03/19/24 14:58 Source: patient Mode of arrival: ambulatory Limitations: no limitations History of Present Illness HPI Narrative: 89-year-old male with history of COPD presents with son if complaint of cough, chest congestion, wheezing for the past 3 days. Patient is out of his medicine were nebulizer. Afebrile. Alert and talkative. Reports shortness of breath with exertion. Patient concern for pneumonia. All systems reviewed and negative except as noted above. Related Data Allergies Allergy/AdvReac Type Severity Reaction Status Date / Time Penicillins Allergy Unknown Verified 03/19/24 14:49 Review of Systems Review of Systems: CONSTITUTIONAL: Denies fever, chills, or sweats. reports fatigue. EYES: Denies visual changes, redness, or discharge. ENT: Denies rhinorrhea, congestion, sore throat, or otalgia. CARDIOVASCULAR: Denies chest pain, palpitations, or edema. RESPIRATORY: Reports cough, chest congestion, wheezing, dyspnea with exertion. GASTROINTESTINAL: Denies abdominal pain, nausea, vomiting, or diarrhea. GENITOURINARY: Denies dysuria or hematuria. SKIN: Denies rash or itching. MUSCULOSKELETAL: Denies back pain, joint pain, or myalgia. NEUROLOGIC: Denies headache, numbness, or weakness. PSYCHIATRIC: Denies anxiety or depression. All other systems reviewed are negative, except as documented in HPI. PMFSH Comments At time of signature, agree with nursing past medical, surgical, social and family history. There is no relevant family history pertinent to the presenting complaint. Exam Narrative: GENERAL: This is a well-nourished, well-developed patient, in no apparent distress. HEAD: normocephalic, atraumatic. EYES: PERRL. Sclera clear/white. Vision is grossly intact. EARS: External ears normal, auditory canals clear and without drainage, TMs normal without perforation. Hearing grossly intact. NOSE: External nose normal with no obvious nasal discharge, nares without redness, no rhinorrhea. THROAT: Mucous membranes moist, posterior pharynx clear. NECK: Neck supple, non-tender without lymphadenopathy, masses or thyromegaly. CARDIOVASCULAR: Regular rate and rhythm without murmurs, gallops, or rubs. RESPIRATORY: Coarse and wheezy throughout all lung fierro. Breath sounds equal bilaterally. No rales, or rhonchi. SKIN: warm, Dry, intact with no suspicious lesions or rash, good texture and turgor. NEURO: awake, alert, and oriented to person, place and time. There were no obvious focal neurologic abnormalities. EXTREMITIES: No joint tenderness, effusion, or edema noted. Course Course Level of Care: Express Care Visit Vital Signs Vital signs: Vital Signs Temperature 36.7 C 03/19/24 14:37 Pulse Rate 80 03/19/24 14:37 Respiratory Rate 18 03/19/24 14:37 Blood Pressure 159/78 H 03/19/24 14:37 Pulse Oximetry 95 03/19/24 14:37 Oxygen Delivery Room Air 03/19/24 14:37 Temperature 36.7 C 03/19/24 14:37 Pulse Rate 80 03/19/24 14:37 Respiratory Rate 18 03/19/24 14:37 Blood Pressure 159/78 H 03/19/24 14:37 Pulse Oximetry 95 03/19/24 14:37 Oxygen Delivery Room Air 03/19/24 14:37 Reviewed MDM - URI/Sore Throat MDM Narrative Medical decision making narrative: lung sounds coarse and wheezy. No respiratory distress. Alert and talkative. Speaking in full sentences. Will prescribe patient antibiotic today due to exam findings, patient history Of COPD. Patient agrees with plan of care. Please be advised this is a medical document. It is intended for [id number] communication. It is written in medical language and may contain unfamiliar abbreviations or verbiage. Medical documents are intended to carry relevant information, facts as evident, and the clinical opinion of the practitioner at the time of the encounter. This report may have been done utilizing a voice recognition system. Attempts have been made to correct errors. However, there may be uncorrected grammatical, spelling, and recognition errors present. The file time of this note does not necessarily represent the time of service. Differential Diagnosis Differential diagnosis: Likely upper respiratory infection, sinusitis, viral infection, influenza and other ( Pneumonia) Discharge Plan Discharge Clinical Impression: Pneumonia, Acute exacerbation of chronic obstructive pulmonary disease (COPD) Patient Disposition: Home, Self-Care Condition: Stable Instructions: Antibiotic Form, Pneumonia (ED) Additional Instructions: Take antibiotic as prescribed until gone. Start prednisone today. May do a nebulizer treatment every 6 hours as needed for wheezing, shortness of breath, chest tightness. Drink plenty of water and rest. Follow-up with primary care physician if symptoms are not improving. Patient Language: Portuguese Prescriptions: New doxycycline hyclate 100 mg capsule 100 mg PO BID 7 Days Qty: 14 0RF prednisone 20 mg tablet 40 mg PO DAILY 5 Days Qty: 10 0RF ipratropium-albuterol 0.5 mg-3 mg(2.5 mg base)/3 mL solution for nebulization 3 ml inhalation Q6H PRN (Reason: shortness of breath or wheezing) Qty: 90 0RF No Action albuterol sulfate 90 mcg/actuation HFA aerosol inhaler 2 puff inhalation Q4-6H PRN (Reason: shortness of breath or wheezing) 30 Days Qty: 8.5 0RF ipratropium-albuterol 0.5 mg-3 mg(2.5 mg base)/3 mL solution for nebulization 3 ml inhalation Q6H PRN (Reason: shortness of breath or wheezing) 30 Days Qty: 90 0RF Follow-up/Referrals: UNKNOWN,DOCTOR [Primary Care Provider] - Time of Disposition: 15:08
== END 2024-03-19 15:15 | disposition home or self-care (01) ==
PROVIDERS: Emergency Provider Nurse Practitioner Family
DX: J18.9 Pneumonia, unspecified organism (principal); J44.1 Chronic obstructive pulmonary disease with (acute) exacerbation; G20.A1 Parkinson's disease without dyskinesia, without mention of fluctuations; I10 Essential (primary) hypertension; E78.00 Pure hypercholesterolemia, unspecified
CPT/HCPCS: 99213; G0463